=== PATIENT | male | born 1985 | race Caucasian/White ===

== ENCOUNTER 2016-12-09 14:01 | Inpatient (IN) ==
[2016-12-09] MEDS ORDERED: SODIUM CHLORIDE 0.9% 1,000 ML IV STA (15:29)
[2016-12-09] MEDS ORDERED: ONDANSETRON 4 MG/2 ML VIAL IV STA (15:29)
[2016-12-09] MEDS ORDERED: METOCLOPRAMIDE 10 MG/2 ML VIAL IV STA (15:29)
[2016-12-09] MEDS ORDERED: PANTOPRAZOLE 40 MG VIAL IV STA (15:29)
--- NOTE | 2016-12-09 15:34 | Emergency Department Note ---
Arrival - Arrival Chief Complaint: Nausea/Vomiting/Diarrhea Stated Complaint: Teeth pain, infection, pain, gallbadder pain, n/v ED Nursing Triage Note: C/O Having nausea and abdomen pain over the last year., states he has been evalauted many time but no one can figure out what is wrong, denies having increase temp., + diarrhea., states this has been coming and going over the last year and it is flairing up again Mode of Arrival: Ambulatory Limitations: No Limitations Source: Patient Time Seen by Provider: 12/09/16 15:29 - History of Present Illness HPI Narrative: This 31-year-old white male presents with 2 years of right upper quadrant abdominal pain with persistent severe heartburn, belching, and water brash. During that 2 year. He said he has been seen in multiple ERs with no diagnosis made; however, he has never been to cardiac tech. He denies any chills, fever, diarrhea, melena, bright red blood per rectum, pancreatitis, history of colitis, or history of diverticulitis. Currently he is medically stable Onset (ago): year(s) (Patient presents 2 years post onset of symptoms) Allergies/Adverse Reactions: Allergies Allergy/AdvReac Type Severity Reaction Status Date / Time No Known Allergies Allergy Verified 12/09/16 14:12 Home Medications: Home Medications Medication Instructions Recorded Confirmed Type No Known Home Medications [No 12/09/16 12/09/16 History Known Home Medications] Review of System - Review of System 12 point system: reviewed and no additional remarkable complaints except as stated - Review of System Constitutional: Present: as per HPI Gastrointestinal: Present: as per HPI Medical,Surgical,& Family Hx - Social History Smoking Status: Smoker, status unknown Frequency of Alcohol Use: Occasionally Type of Drug Use: None Exam Physical Examination: GENERAL: Well developed, well nourished white male in no acute distress. HEENT: Normocephalic. No trauma. Moist mucous membranes. EOMI. PERRLA. ENT NML meth mouth NECK: Supple. No adenopathy. CARDIAC: Regular. No murmurs. Heart rate 83 CHEST: Clear to auscultation. No respiratory distress. O2 sat 90% ABDOMEN: Soft. Tender right upper quadrant. Active bowel sounds. EXTREMITIES: No trauma. Normal ROM. No pedal edema. SKIN: No diaphoresis. No rash. NEURO: Alert. Neuro intact no focal deficits. Vital Signs: Vital Signs Temperature 98.2 F 12/09/16 15:13 Pulse Rate 73 12/09/16 15:13 Respiratory Rate 18 12/09/16 15:13 Blood Pressure 108/69 12/09/16 15:13 O2 Sat by Pulse Oximetry 98 12/09/16 15:13 Course - Reevaluation(s) Reevaluation #1: Advised patient of gallbladder disease and appropriateness of removal at this point time. - Consultations Consultation #1: Discussed with Dr. Schaeffer who will admit for cholecystectomy Results - Labs CBC & BMP: 12/09/16 15:39 12/09/16 15:39 Labs: I have reviewed the laboratory noted its normalcy - Diagnostic Findings Procedure: Ultrasound: image reviewed by me, report reviewed by me (Gallbladder : Borderline thickening of the wall with multiple GB polyps one is larger 6 mm in diameter) Disposition Clinical Impression: Gallbladder polyps Case discussed with: patient, patient's family Condition: Stable Time of Disposition: 17:03
[2016-12-09] MEDS ORDERED: PANTOPRAZOLE 40 MG VIAL IV ONE (15:50)
[2016-12-09] MEDS ORDERED: METOCLOPRAMIDE 10 MG/2 ML VIAL ONE (15:50)
[2016-12-09] MEDS ORDERED: ONDANSETRON 4 MG/2 ML VIAL ONE (15:50)
[2016-12-09 15:51] LABS: Basophils % 0.4 % (0.0-0.8); Eosinophils # 0.2 10*3/uL (0.0-0.87); Eosinophils % 1.8 % (0.00-10.9); Hematocrit 41.2 VOL% (42.0-52.0); Hemoglobin 14.3 GM/DL (14.0-18.0); Immature Granulocytes % 0.2 %; Immature Granulocytes Absolute 0.02 #; Lymphocytes % 23.6 % (21.2-54.2); Mean Corpuscular HGB Conc 34.7 GM/DL (32-36); Mean Corpuscular Hemoglobin 33 PG (27-34); Mean Corpuscular Volume 94.5 FL (87-102); Mean Platelet Volume 9.9 FL (9.6-12.0); Monocytes # 0.6 10*3/uL (0.11-0.8); Monocytes % 6.6 % (1.7-12.7); Neutrophils # 5.7 10*3/uL (1.4-7.4); Neutrophils % 67.4 % (38.7-73.9); Platelet Count 242 T/CUMM (130-400); Red Blood Count 4.36 MC/CUMM (3.8-5.5); Red Cell Distribution Width 12.5 % (9.3-17.3); White Blood Count 8.4 T/CUMM (4-12)
[2016-12-09 16:14] LABS: Apearance,Urine CLEAR (Clear); Bilirubin,Urine Negative (Negative); Blood, Urine Negative (Negative); Glucose,Urine (UA) Negative (Negative); Ketones,Urine Negative (Negative); Mucus,Urine Occasional /LPF (Occasional); Nitrite,Urine Negative (Negative); Protein,Urine Negative; RBC,Urine <1 /HPF (0-4); Squamous Epithelial Cell,Urine Occasional /HPF (0-10); Urine Color Yellow (Yellow); WBC,Urine <1 /HPF (0-6)
--- NOTE | 2016-12-09 16:17 | Ultrasound Report ---
Limited abdomen ultrasound. Indication: Right upper quadrant pain. The liver is normal in size. The parenchymal echogenicity is normal. No focal liver lesions are identified. The common duct measures 4 mm. There are no gallstones. The gallbladder wall measures 3 mm. The patient is tender over the gallbladder. There are multiple gallbladder polyps seen, the largest of which measures 6 mm. The right kidney presents a normal appearance. Portions of the pancreas aren't secured by bowel gas. Visualized portions appear normal. Impression: Borderline gallbladder wall thickening. Gallbladder tenderness. Multiple gallbladder polyps, the largest of which measures 6 mm. PROCEDURE INTERPRETED AT [facility] DEPARTMENT OF RADIOLOGY Final Report Signed by: Dr. Heather Hayden
[2016-12-09 16:23] LABS: Alanine Aminotransferase 15 U/L (16-61); Albumin 3.9 G/DL (3.4-5.0); Alkaline Phosphatase 45 U/L (45-117); Amylase 60 U/L (25-115); Aspartate Amino Transferase 14 U/L (0-37); Bilirubin,Total < 0.39 MG/DL (0.2-1.0); Blood Urea Nitrogen 14 MG/DL (7-18); Calcium 8.8 MG/DL (8.5-10.1); Glucose 87 MG/DL (74-106); Osmolality,Calculated 282.1 MOS/KG (273-304); Potassium 3.9 MMOL/L (3.5-5.1); Sodium 142 MMOL/L (136-145); Total Protein 6.4 G/DL (6.4-8.3)
[2016-12-09 16:25] LABS: Lactic Acid 0.8 MMOL/L (0.4-2.0)
[2016-12-09] MEDS ORDERED: ONDANSETRON 4 MG/2 ML VIAL IV PRN (17:05)
[2016-12-09] MEDS ORDERED: HYDROmorphone 2 MG/1 ML VIAL IV PRN (17:05)
--- NOTE | 2016-12-09 17:16 | General Surg History&Physical ---
Assessment and Plan (1) Biliary colic Status: Acute Assessment and plan: This patient has symptoms of biliary colic and concerning for cholecystitis given gallbladder wall thickening and the exam and timeframe of his symptoms. I recommended admission for antibiotics and laparoscopic cholecystectomy tomorrow. I have discussed the risks, benefits, and alternatives of the operation, and the expected outcomes have been reviewed. In particular, I discussed the risk of bleeding, infection, hernias of the abdominal wall, injury to the intestines or liver, pancreatitis, dropped or retained stones in the abdomen, bile leak, and bile duct injury. The patient's questions have been answered. I see no indications for a selective cholangiogram. Current Visit: Yes History of Present Illness Chief complaint: Abdominal pain History of present illness: Mr. De Luna is a 31 year old male who presents with a several month history of worsening right upper quadrant pain that worsened today. His ultrasound shows gallbladder wall thickening and some polyps versus stones on this largest near the neck of his gallbladder. He is tender in the right upper quadrant. He has typical postprandial symptoms Home Medications Medication Instructions Recorded Confirmed Type No Known Home Medications [No 12/09/16 12/09/16 History Known Home Medications] Allergies Allergy/AdvReac Type Severity Reaction Status Date / Time No Known Allergies Allergy Verified 12/09/16 14:12 Medical,Surgical,& Family Hx - Social History Smoking Status: Smoker, status unknown Frequency of Alcohol Use: Occasionally Type of Drug Use: None Exam - Constitutional Vitals: Period Temp Pulse Resp BP Sys/Arellano Pulse Ox Last 24 Hr 98.2 F-98.3 F 73-83 18-18 108-120/69-81 98-98 General appearance: normal weight, no acute distress - Head Head exam: Present: normal inspection, normocephalic - Eye Eye exam: Present: EOMI Pupils: Present: ANUSHKA - ENT ENT exam: Present: normal exam Mouth exam: Present: normal external inspection, normal voice - Neck Neck exam: Present: normal inspection, trachea midline - Respiratory Respiratory exam: Present: clear to auscultation bilaterally. Absent: accessory muscle use, chest wall tenderness - Cardiovascular Cardiovascular exam: Present: RRR. Absent: systolic murmur, tachycardia - GI/Abdominal GI/Abdominal exam: Present: normal bowel sounds, Lang's sign, tenderness, soft. Absent: distended, guarding, rebound - Extremities Exam Extremities exam: Present: normal inspection, normal capillary refill - Back Exam Back exam: Present: normal inspection - Neurological Exam Neurological exam: Present: alert, oriented X3 Speech: Present: normal - Skin Skin exam: Present: normal color, warm - Constitutional Constitutional: Present: as per HPI - EENT Nose, mouth and throat: Present: as per HPI - Cardiovascular Cardiovascular: Present: as per HPI - Respiratory Respiratory: Present: as per HPI - Gastrointestinal Gastrointestinal: Present: as per HPI - Genitourinary Genitourinary: Present: as per HPI - Musculoskeletal Musculoskeletal: Present: as per HPI - Neurological Neurological: Present: as per HPI - Endocrine Endocrine: Present: as per HPI Hematologic/Lymphatic: Present: as per HPI Results - Labs CBC & BMP: 12/09/16 15:39 12/09/16 15:39 - Diagnostic Findings Procedure: Ultrasound: image reviewed by me, report reviewed by me (Gallbladder wall thickening with stones versus polyps large which measures 6 mm in the neck of the gallbladder)
[2016-12-09] MEDS ORDERED: METOCLOPRAMIDE 10 MG/2 ML VIAL IV SCH (18:00)
[2016-12-09] MEDS ORDERED: ENOXAPARIN 40 MG/0.4 ML SYRINGE SUBCUT SCH (18:32)
[2016-12-09] MEDS: SODIUM CHLORIDE 0.9% 1,000 ML IV SCH (18:54)
[2016-12-09] MEDS: METOCLOPRAMIDE 10 MG/2 ML VIAL IV SCH (20:57)
[2016-12-10] MEDS: SODIUM CHLORIDE 0.9% 1,000 ML IV SCH (04:57)
[2016-12-10] MEDS: METOCLOPRAMIDE 10 MG/2 ML VIAL IV SCH ×3 (04:57→15:20)
[2016-12-10] MEDS ORDERED: FAMOTIDINE 20 MG TABLET PO ONE (07:00)
[2016-12-10] MEDS ORDERED: LORazepam 1 MG TABLET PO ONE (07:00)
[2016-12-10] MEDS ORDERED: PANTOPRAZOLE 40 MG VIAL IV SCH (09:00)
[2016-12-10] MEDS ORDERED: LIDOCAINE 1%/EPI INJ 20 ML VIAL ONE (11:14)
[2016-12-10] MEDS ORDERED: TISSUE ADHESIVE 1 EACH APPLICATOR TOP ONE (11:14)
[2016-12-10] MEDS ORDERED: GLYCOPYRROLATE 0.4 MG/2 ML VIAL ONE (12:04)
[2016-12-10] MEDS ORDERED: NEOSTIGMINE 10 MG/10 ML VIAL ONE (12:04)
[2016-12-10] MEDS ORDERED: LIDOCAINE 2% 5 ML VIAL ONE (12:04)
[2016-12-10] MEDS ORDERED: ONDANSETRON 4 MG/2 ML VIAL ONE (12:04)
[2016-12-10] MEDS ORDERED: KETOROLAC 30 MG/1 ML VIAL ONE (12:04)
[2016-12-10] MEDS ORDERED: ROCURONIUM 100 MG/10 ML VIAL IV ONE (12:04)
[2016-12-10] MEDS ORDERED: PROPOFOL 200 MG/20 ML VIAL IV ONE (12:04)
--- NOTE | 2016-12-10 12:52 | Operative Note ---
Date of procedure: 12/10/16 Pre-op diagnosis: Chronic cholecystitis Post-op diagnosis: same Procedure: Preoperative diagnosis Chronic cholecystitis Postoperative diagnosis Same Procedures performed Laparoscopic cholecystectomy Findings Acute and chronic cholecystitis was seen. The critical view of safety was obtained prior to placing clips on the cystic duct and cystic artery. Complications None apparent Specimen Gallbladder Anesthesia GETA Blood loss 5 mL Indications Chronic cholecystitis. The risks, benefits, and alternatives of the operation were discussed with the patient in detail, and the expected outcomes were reviewed. In particular, the risk of bowel injury, liver injury, bile duct leak and bile duct injury, as well as pancreatitis and retained or drop stones were discussed in detail. All the patient's questions were answered. She like to proceed with the operation. Description of procedure The patient was taken to the operating room and transferred to the operating table in the supine position. Pressure points were padded and SCDs were placed to bilateral lower extremities. General endotracheal anesthesia was administered. The abdomen was prepped chlorhexidine and draped sterilely. Preoperative antibiotics were administered, a timeout was performed. The abdomen was entered in a supraumbilical location of the Veress needle. The skin incision was made in the supraumbilical location with a 11 blade scalpel after local anesthetic was administered. Umbilical stalk was grasped with a penetrating towel clip. A Veress needle was used to enter the peritoneal cavity confirmed by double click technique. Aspiration was negative. Saline drop test confirmed intraperitoneal location. The abdomen was insufflated to 15 mmHg with an initial insufflation pressure of 2 mmHg. The Veress needle was removed and a 5 mm trocar was placed blindly. The towel clip was removed. Diagnostic laparoscopy was performed. There is no evidence of Veress needle or trocar injury. The patient was placed in reverse Trendelenburg and left side rolled down position. Under direct visualization, and after local anesthetic was administered, an 11 mm midepigastric trocar and 2 right subcostal 5 mm trochars were placed. There was chronic inflammation of the gallbladder with adhesions between the omentum and the gallbladder as well as the stomach. The adhesions were taken down with sharp dissection. The gallbladder was grasped at the fundus and infundibulum. The cystic plate peritoneum was dissected into the critical view of safety was obtained. The cystic duct and cystic artery were clipped twice initially and once laterally and divided laparoscopically with scissors between clips. Gallbladder was removed from the gallbladder fossa using hook electrocautery. The gallbladder was placed in a Endo Catch retrieval bag through the 11 mm trocar and removed through the trocar with no significant fascial extension of the incision. The gallbladder fossa was suction irrigated until the effluent was clear. The CO2 was released from the abdomen and the trochars were removed. The skin incisions were closed with 4- 0 Monocryl subcuticular suture and sterile skin glue. The patient was awakened from anesthesia and transferred to recovery. Postoperative plan Advance diet as tolerated Pain control Anesthesia: MATTHEW, local Surgeon / Physician: Dustin Schaeffer Estimated blood loss: minimal Specimens: other (gallbladder) Condition: stable Disposition: PACU Results - Labs CBC & BMP: 12/09/16 15:39 12/09/16 15:39 Discharge Plan - Discharge Data Disposition: Disch To Home/Self Care Condition at Discharge: Stable Discharge Diet: advance to your usual diet Activity: no lifting Hygiene: may shower Weight Bearing at Discharge: weight bear as tolerated Driving: other (Do not drive or operate heavy machinery for at least 24 hours and after you are off of narcotic pain medications.) Contact your physician if you experience:: fever over 101, Difficulty voiding, Redness or swelling, Nausea/Vomiting, Shortness of breath, Bleeding, pain uncontrolled by pain medications Wound / Dressing Care Instructions: It is okay to shower. Do not scrub the incision aggressively or submerge it under water. - Discharge Medications New HYDROcodone/ACETAMIN 7.5-325 [[place] 7.5-325] 1 tablet PO Q4H PRN #30 tablet PRN Reason: Pain Moderate (4-7) - Follow Up or Referral Follow Up: Dustin Schaeffer MD [Physician] - 2 Weeks - Forms/Instructions
[2016-12-10] MEDS ORDERED: MEPERIDINE 25 MG/1 ML VIAL ONE (13:15)
[2016-12-10] MEDS ORDERED: MEPERIDINE 25 MG/1 ML VIAL IV PRN (13:20)
[2016-12-10] MEDS ORDERED: SEVOFLURANE 1 UNIT/15 MINUTE INH ONE (13:21)
[2016-12-10] MEDS ORDERED: MIDAZOLAM 2 MG/2 ML VIAL ONE (13:21)
[2016-12-10] MEDS ORDERED: fentaNYL 100 MCG/2 ML VIAL ONE (13:21)
--- NOTE | 2016-12-10 14:00 | Anesthesia Post-Op ---
Anesthesia Post OP - Post Ansesthetic Evaluation Patient seen in post op: Yes Resp: within normal limits CV: within normal limits Mental: within normal limits Temp: within normal limits [id number]: within normal limits Nausea and Vomiting: within normal limits Pain: within normal limits
[2016-12-10 16:18] VITALS: BP 115/80
--- NOTE | 2016-12-12 13:19 | Pathology Report from [facility] ---
[facility] ACCESSION # : [id number] PATIENT NAME : Zelalem Adams ORDERING DR : Dustin Schaeffer MD CLINICAL HX: Biliary colic, chronic cholecystitis POST-OP DX: Same SPECIMEN INFO: Gallbladder GROSS DESCRIPTION: Received in formalin labeled ZELALEM ADAMS is an intact gallbladder measuring 8.0 x 3.0 cm. The serosa is smooth and blue mccallum. The gallbladder wall measures 0.3 cm. The mucosal surface is velvety and brown tinged. The lumen is filled with yellow bile with no stones identified. Transportation Engineer sections are submitted in one cassette. DIAGNOSIS FOR ZELALEM ADAMS: GALLBLADDER, CHOLECYSTECTOMY: Chronic cholecystitis. Cholesterolosis. COLLECTED DATE: 12/10/2016 [facility] REPORT DATE: 12/11/2016 ELECTRONICALLY SIGNED BY: Nataliia Waters M.D. 12/11/2016 - 11:33:53 [email or web address]
== END 2016-12-10 16:43 | disposition home or self-care (01) | DRG 419 ==
LOC: N.ED 14:01 → N.EDINP 17:04 → N.3E 18:32
PROVIDERS: ADMIT Surgery; ATTEND Surgery
PROC: LAPCHOL (2016-12-10 12:04)